=== PATIENT | male | born 1935 | race Caucasian/White ===

== ENCOUNTER 2018-07-25 12:32 | Inpatient (IN) ==
[2018-07-25] MEDS ORDERED: SINEMET 25/100 PO ONE (18:29)
--- NOTE | 2018-07-25 19:36 | HISTORY AND PHYSICAL ---
DATE OF ADMISSION: July 25, 2017. CHIEF COMPLAINT: Unable to walk. 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 His MRI diagnosis was January 18. He was immediately referred to neurosurgery and underwent craniotomy shortly afterwards. Pathology confirmed a glioblastoma multiforme. He has been followed by Dr. Aden at [facility] in [place] as his oncologist and has been taking cyclic Temodar oral chemotherapy until several weeks ago. Last week, during one of his drug holidays, he suddenly became unable to stand or walk. His legs became too weak or perhaps uncooperative. His has struggled to care for him at home and has had difficulty getting him to move from his recliner to the hospital bed and back. After discussion with Dr. Aden, she agreed to hospice care and hospice recommended a five day palliative care admission to give his some rest at home. Throughout this, he has remained fairly alert and cheerful although he has had significant speech deficit since his craniotomy. He has improved minimally with speech therapy. He seems to understand spoken words quite well and follows commands. He has been eating well although he has lost weight over the last year. His previous hyperglycemia is now normal after weight loss. PHYSICAL EXAMINATION: VITAL SIGNS: Temperature 98.0, blood pressure 112/60, pulse 70, respiratory rate 20 and O2 saturation 99% on room air. GENERAL: He is alert but dysarthric with speech and occasional word salad. HEENT: Pupils are equal, round and reactive to light, 3 mm with intact extraocular movements. His cranial nerve examination is unremarkable. NECK: Supple. LUNGS: Clear. CHEST: Regular rate and rhythm. No murmur. ABDOMEN: Soft, flat and nontender with active bowel sounds. EXTREMITIES: No edema. NEUROLOGICAL: As above. Mild pill rolling tremors noted in the left arm. Testing for cogwheeling revealed a fair amount of "gegenhalten" resistance. His hand office manager is 4+/5 bilaterally. He is able to raise both legs individually off the mattress on command. ASSESSMENT: 1. Glioblastoma multiforme for respite care under hospice. 2. 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 We will try some Sinemet. I also feel that palliative physical therapy evaluation could maybe teach his how to transfer him and that would be helpful and allow him to return home for a longer period of time. cc: Yosef Coronado MD
[2018-07-25] MEDS: PEPCID PO SCH (21:09)
[2018-07-25] MEDS: KEPPRA PO SCH (21:09)
[2018-07-25] MEDS: TYLENOL PO PRN (21:09)
[2018-07-25] MEDS: DECADRON PO SCH (21:10)
[2018-07-26] MEDS: PRILOSEC PO SCH (06:50)
[2018-07-26] MEDS: SINEMET 25/100 PO SCH ×3 (06:50→17:23)
[2018-07-26] MEDS: DECADRON PO SCH ×2 (08:12→20:56)
[2018-07-26] MEDS: PEPCID PO SCH ×2 (08:12→20:55)
[2018-07-26] MEDS: ARICEPT PO SCH (08:12)
[2018-07-26] MEDS: SENOKOT PO SCH (08:12)
[2018-07-26] MEDS: KEPPRA PO SCH ×2 (08:13→20:55)
[2018-07-26] MEDS: TYLENOL PO PRN (12:22)
[2018-07-27] MEDS: SINEMET 25/100 PO SCH ×3 (06:47→17:02)
[2018-07-27] MEDS: PRILOSEC PO SCH (06:47)
[2018-07-27] MEDS: KEPPRA PO SCH ×2 (09:45→20:38)
[2018-07-27] MEDS: SENOKOT PO SCH (09:45)
[2018-07-27] MEDS: DECADRON PO SCH ×2 (09:45→20:38)
[2018-07-27] MEDS: PEPCID PO SCH ×2 (09:45→20:38)
[2018-07-27] MEDS: ARICEPT PO SCH (09:45)
[2018-07-27] MEDS: TYLENOL PO PRN (14:09)
[2018-07-28] MEDS: SINEMET 25/100 PO SCH ×3 (06:06→18:39)
[2018-07-28] MEDS: PRILOSEC PO SCH (06:06)
[2018-07-28] MEDS: DECADRON PO SCH ×2 (09:05→21:28)
[2018-07-28] MEDS: SENOKOT PO SCH (09:05)
[2018-07-28] MEDS: ARICEPT PO SCH (09:05)
[2018-07-28] MEDS: KEPPRA PO SCH ×2 (09:05→21:28)
[2018-07-28] MEDS: PEPCID PO SCH ×2 (09:05→21:28)
[2018-07-28] MEDS ORDERED: DULCOLAX PR ONE (18:52)
[2018-07-29] MEDS: PRILOSEC PO SCH (06:08)
[2018-07-29] MEDS: SINEMET 25/100 PO SCH ×3 (06:09→21:44)
[2018-07-29] MEDS: DECADRON PO SCH ×2 (09:11→21:43)
[2018-07-29] MEDS: KEPPRA PO SCH ×2 (09:11→21:43)
[2018-07-29] MEDS: PEPCID PO SCH ×2 (09:11→21:43)
[2018-07-29] MEDS: ARICEPT PO SCH (09:11)
[2018-07-29] MEDS: SENOKOT PO SCH (09:11)
[2018-07-30] MEDS: SINEMET 25/100 PO SCH (06:06)
[2018-07-30] MEDS: PRILOSEC PO SCH (06:06)
[2018-07-30] MEDS: PEPCID PO SCH (09:18)
[2018-07-30] MEDS: DECADRON PO SCH (09:18)
[2018-07-30] MEDS: KEPPRA PO SCH (09:18)
[2018-07-30] MEDS: SENOKOT PO SCH (09:20)
[2018-07-30] MEDS: ARICEPT PO SCH (09:20)
[2018-07-30 09:40] VITALS: BP 117/70
--- NOTE | 2018-07-30 10:03 | DISCHARGE SUMMARY ---
ADMISSION DATE: 07/25/2018 DISCHARGE DATE: 07/30/2018 FINAL DIAGNOSES: 1. Glioblastoma multiforme, terminal. 2. Inability to stand or walk. 3. Parkinson's syndrome. 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 He became unable to stand or walk at home several days prior to admission and after consideration of options he and his opted for hospice care and hospice arranged for a 5 day respite admission. PHYSICAL EXAMINATION: Remarkable mainly for dysarthric speech and a pill rolling tremor greater in the left arm. He had some cogwheel rigidity as well and his motor strength seemed relatively intact but he had trouble communicating his signals to the arm and leg muscles. HOSPITAL COURSE: He was admitted for respite care and his visited during the day particularly at mealtimes to help feed him but otherwise she rested well at home. He was seen by Physical Therapy after beginning low dose Sinemet and this seemed to improve his mobility. Yesterday he walked 140 feet with Physical Therapy assisted by a front wheeled walker. I believe he will do well at home and Mrs. Levi has arranged for some undertaker helper at home and plans to meet with his long-term care insurance provider Wednesday as well. He is discharged today back to [facility] at home. The only medicine changes were the addition of Sinemet 25 mg/100 mg 1 three times a day. cc: Yosef Coronado MD
== END 2018-07-30 10:33 | disposition hospice, home (50) | DRG 55 ==
LOC: DIRADM 12:32 → 3N 13:05
PROVIDERS: ADMIT Internal Medicine; ATTEND Internal Medicine
CPT/HCPCS: 97116; 97162; 97530; A9270; J8540